=== PATIENT | female | born 1950 | race Native Hawaiian/Other Pacific Islander ===

== ENCOUNTER 2018-06-17 08:45 | Day surgery (SDC) | payer OTHER | END 2018-06-17 10:35 | disposition home or self-care (01) | LOC: OR 08:45 | PROC: 3E0R33Z Introduction of Anti-inflammatory into Spinal Canal, Percutaneous Approach (ICD-10-PCS; principal; 2018-06-17) | PROC: B01BYZZ Fluoroscopy of Spinal Cord using Other Contrast (ICD-10-PCS; 2018-06-17) | DX: M50.123 Cervical disc disorder at C6-C7 level with radiculopathy (principal) | CPT/HCPCS: J1020 ==

== ENCOUNTER 2018-07-08 08:16 | Day surgery (SDC) | payer OTHER | END 2018-07-08 11:10 | disposition home or self-care (01) | LOC: OR 08:16 | PROC: 3E0R33Z Introduction of Anti-inflammatory into Spinal Canal, Percutaneous Approach (ICD-10-PCS; principal; 2018-07-08) | PROC: B01BYZZ Fluoroscopy of Spinal Cord using Other Contrast (ICD-10-PCS; 2018-07-08) | DX: M50.123 Cervical disc disorder at C6-C7 level with radiculopathy (principal) | CPT/HCPCS: J1020 ==

== ENCOUNTER 2018-09-22 09:30 | Day surgery (SDC) | payer OTHER ==
[~2018-09-22] VITALS: Ht 30.5 cm; Wt 0.5 kg
== END 2018-09-22 12:30 | disposition home or self-care (01) ==
LOC: OR 09:30
PROC: 3E0R3BZ Introduction of Anesthetic Agent into Spinal Canal, Percutaneous Approach (ICD-10-PCS; principal; 2018-09-22)
PROC: 3E0R33Z Introduction of Anti-inflammatory into Spinal Canal, Percutaneous Approach (ICD-10-PCS; 2018-09-22)
PROC: B01BYZZ Fluoroscopy of Spinal Cord using Other Contrast (ICD-10-PCS; 2018-09-22)
DX: G03.9 Meningitis, unspecified (principal)
CPT/HCPCS: J1020; J1170; J2001

== ENCOUNTER 2018-11-17 08:14 | Day surgery (SDC) | payer OTHER | END 2018-11-17 10:10 | disposition home or self-care (01) | LOC: OR 08:14 | PROC: 3E0R3BZ Introduction of Anesthetic Agent into Spinal Canal, Percutaneous Approach (ICD-10-PCS; principal; 2018-11-17) | PROC: 3E0R33Z Introduction of Anti-inflammatory into Spinal Canal, Percutaneous Approach (ICD-10-PCS; 2018-11-17) | PROC: B01BYZZ Fluoroscopy of Spinal Cord using Other Contrast (ICD-10-PCS; 2018-11-17) | DX: G03.9 Meningitis, unspecified (principal); M96.1 Postlaminectomy syndrome, not elsewhere classified | CPT/HCPCS: J1020 ==

== ENCOUNTER 2019-09-27 11:02 | Outpatient (CLI) | payer OTHER | END 2019-09-27 21:27 | disposition home or self-care (01) | LOC: RAD 11:02 | DX: M46.1 Sacroiliitis, not elsewhere classified (principal) ==